=== PATIENT | female | born 1970 | race American Indian/Alaskan Native ===

== ENCOUNTER 2016-09-29 18:19 | Emergency (ER) | payer SELFPAY ==
[2016-09-29 19:31] VITALS: BP 172/86
[2016-09-29 20:25] LABS: Hematocrit 36.3 % (30.3-42.9); Hemoglobin 11.4 gm/dl (10.1-14.3); Mean Corpuscular HGB Conc 31 % (30-34); Mean Corpuscular Volume 74 fl (79-97); Platelet Count 301 K/mm3 (140-440); Red Blood Count 4.92 M/mm3 (3.65-5.03); Red Cell Distribution Width 16.4 % (13.2-15.2); White Blood Count 6.1 K/mm3 (4.5-11.0)
[2016-09-29 20:31] LABS: Mean Corpuscular Hemoglobin 23 pg (28-32)
[2016-09-29 20:33] LABS: Anion Gap 17 mmol/L; BUN/Creatinine Ratio 11.66; Blood Urea Nitrogen 7 mg/dL (7-17); Calcium 8.9 mg/dL (8.4-10.2); Carbon Dioxide 26 mmol/L (22-30); Chloride 99.9 mmol/L (98-107); Glucose 87 mg/dL (65-100); Potassium 4.3 mmol/L (3.6-5.0); Sodium 139 mmol/L (137-145)
[2016-09-29 21:13] LABS: Bilirubin,Urine NEG (Negative); Blood,Urine LG (Negative); Ketones,Urine TR mg/dL (Negative); Leukocyte Esterase,Urine TR (Negative); Mucus,Urine FEW /HPF; Nitrite,Urine NEG (Negative); Urobilinogen,Urine < 2.0 mg/dL (<2.0)
[2016-09-29 21:14] LABS: RBC,Urine > 182.0 /HPF (0.0-6.0); WBC,Urine < 1.0 /HPF (0.0-6.0)
--- NOTE | 2016-09-30 08:26 | Ultrasound Report ---
FINAL REPORT EXAM: US PELVIC COMPLETE HISTORY: heavy vag bleed with clots COMPARISON: None available. TECHNIQUE: Several real-time grayscale and color Doppler images were obtained. Transabdominal and transvaginal exam. FINDINGS: The uterus measures 11.2 x 6.0 x 6.3 centimeters. Within the mid to fundal aspect of the endometrial canal there is a polypoid structure measuring 4.0 x 2.7 x 3.5 centimeters. This is most concerning for prominent submucosal fibroid. Endometrial polyp less likely. This causes distortion of the endometrial stripe. Right ovary measures 4.2 x 2.3 x 3.2 centimeters. Left ovary measures 4.6 x 2.3 x 3.1 centimeters. There are 2 dominant follicles in left ovary measuring 1.6 and 1.1 centimeters each. There is gross vascular flow to the ovaries. No adnexal masses are demonstrated. IMPRESSION: Heterogeneous mass occupying the mid to fundal margin the endometrial canal measuring 4.0 x 2.6 x 3.5 centimeters most concerning for submucosal fibroid. Prominent endometrial polyp or endometrial mass or less likely but not entirely excluded. Normal physiologic changes of the ovaries. No adnexal masses.
== END 2016-09-30 08:55 | disposition left against medical advice (07) ==
LOC: ED 18:19
DX: N93.8 Other specified abnormal uterine and vaginal bleeding (principal); Z53.21 Procedure and treatment not carried out due to patient leaving prior to being seen by health care provider
CPT/HCPCS: 36415; 76830; 76856; 80048; 81001; 81025; 85027